=== PATIENT | male | born 1965 ===

== ENCOUNTER 2025-07-13 16:15 | Inpatient (IN) | payer OTHER ==
[~2025-07-13] VITALS: Ht 162.6 cm; Wt 71.0 kg
[2025-07-13 21:50] LABS: PLATELET COUNT (AUTO) 223 K/uL (150-450); RED BLOOD CELL COUNT(AUTO) 4.58 MIL/uL (4.50-5.90); RED CELL DISTRIBUTION WIDTH 14.4 % (11.5-14.5); WHITE BLOOD COUNT (AUTO) 11.2 K/uL (4.5-11.0)
[2025-07-13 21:52] LABS: ERYTHROCYTE SEDIMENTATION RATE 55 MM/HR (0-20)
[2025-07-13 21:59] LABS: CALCIUM, TOTAL 9.6 mg/dL (8.8-10.5); CREATININE 1.43 mg/dL (0.60-1.30); GLOMERULAR FILTR. RATE CALC 51.0 mL/min (>60); GLUCOSE,RANDOM 115.0 mg/dL (70-110); SODIUM SERUM 138.0 mmol/L (136-145); UREA NITROGEN, BLOOD 44.0 mg/dL (7-18)
[2025-07-13] MEDS: SODIUM CHLORIDE 0.9% 1,000 ML IV ONE (22:15)
[2025-07-13 22:32] LABS: LACTIC ACID 1.2 mmol/L (0.4-2.0)
[2025-07-13] MEDS: VANCOMYCIN 1GM/WATER(PEG/NADA) 200 ML IV ONE (22:53)
[2025-07-13] MEDS: LIDOCAINE 1% 10 ML VIAL SQ ONE (23:00)
[2025-07-14] MEDS ORDERED: ZOLPIDEM TARTRATE 5 MG TABLET PO PRN
[2025-07-14] MEDS ORDERED: HYDROCODONE/ACETAMINOPHEN 5-325 MG TABLET PO PRN
[2025-07-14] MEDS: HEPARIN SODIUM,PORCINE 5,000 UNITS/ML VIAL SQ SCH
[2025-07-14] MEDS ORDERED: ONDANSETRON HCL 4 MG/2 ML VIAL IVP PRN
[2025-07-14] MEDS ORDERED: BISACODYL 10 MG RECTAL RECTAL SUPPOSITORY PR PRN
[2025-07-14] MEDS ORDERED: MAGNESIUM HYDROXIDE SUSPENSION 30 ML UDCUP PO PRN
[2025-07-14 01:50] VITALS: BP 118/81; PULSE 80; RESP 18; TEMP 97.9; O2SAT 98
[2025-07-14 06:18] LABS: CALCIUM, TOTAL 8.7 mg/dL (8.8-10.5); CREATININE 1.10 mg/dL (0.60-1.30); GLOMERULAR FILTR. RATE CALC > 60 mL/min (>60); GLUCOSE,RANDOM 99 mg/dL (70-110); SODIUM SERUM 139 mmol/L (136-145); UREA NITROGEN, BLOOD 38 mg/dL (7-18)
[2025-07-14] MEDS ORDERED: VANCOMYCIN 1.25 GM/WATER(PEG) 250 ML IV SCH (08:00)
[2025-07-14] MEDS: DOCUSATE SODIUM 100 MG CAPSULE PO SCH (08:58)
[2025-07-14] MEDS: PANTOPRAZOLE SODIUM 40 MG DR TABLET PO SCH (08:58)
[2025-07-14] MEDS: VANCOMYCIN 1GM/WATER(PEG/NADA) 200 ML IV SCH (08:59)
[2025-07-14 09:00] VITALS: BP 116/78; PULSE 82; RESP 18; TEMP 98; O2SAT 98
[2025-07-14 20:15] VITALS: BP 108/71; PULSE 84; RESP 18; TEMP 99.3; O2SAT 96
[2025-07-14] MEDS: MORPHINE SULFATE 4 MG/ML VIAL IVP PRN (21:06)
[2025-07-15 04:00] VITALS: BP 114/76; PULSE 95; RESP 18; TEMP 99.1; O2SAT 98
[2025-07-15 05:55] LABS: CALCIUM, TOTAL 8.3 mg/dL (8.8-10.5); CREATININE 1.00 mg/dL (0.60-1.30); GLOMERULAR FILTR. RATE CALC > 60 mL/min (>60); GLUCOSE,RANDOM 116 mg/dL (70-110); SODIUM SERUM 135 mmol/L (136-145); UREA NITROGEN, BLOOD 27 mg/dL (7-18)
[2025-07-15 06:05] LABS: CHOL/HDL RATIO 3.8 (4.2-7.3); LDL CHOL (CALC.) 79.0 mg/dL (0-130)
[2025-07-15 08:46] VITALS: BP 113/73; PULSE 91; RESP 18; TEMP 99; O2SAT 96
[2025-07-15] MEDS: RINGERS SOLUTION,LACTATED 1,000 ML IV ONE (17:40)
[2025-07-15 20:00] VITALS: BP 127/75; PULSE 90; RESP 18; TEMP 100.2; O2SAT 99
[2025-07-15] MEDS: ACETAMINOPHEN 325 MG TABLET PO PRN (20:08)
[2025-07-15] MEDS ORDERED: SODIUM CHLORIDE 0.9% 250 ML IV ONE (20:14)
[2025-07-15] MEDS ORDERED: POTASSIUM CHL 10 MEQ/WATER 50 ML IV PRN (20:15)
[2025-07-15] MEDS: IBUPROFEN 600 MG TABLET PO SCH (21:23)
[2025-07-15] MEDS: POTASSIUM CHLORIDE 20 MEQ ER TABLET PO PRN (21:23)
[2025-07-15 21:30] VITALS: TEMP 99.3
[2025-07-16 00:53] VITALS: TEMP 98.4
[2025-07-16 04:21] VITALS: BP 101/65; PULSE 71; RESP 18; TEMP 98.1; O2SAT 96
[2025-07-16 06:48] LABS: CALCIUM, TOTAL 8.5 mg/dL (8.8-10.5); CREATININE 0.98 mg/dL (0.60-1.30); GLOMERULAR FILTR. RATE CALC > 60 mL/min (>60); GLUCOSE,RANDOM 105 mg/dL (70-110); SODIUM SERUM 134 mmol/L (136-145); UREA NITROGEN, BLOOD 21 mg/dL (7-18)
[2025-07-16 07:16] LABS: PLATELET COUNT (AUTO) 226 K/uL (150-450); RED BLOOD CELL COUNT(AUTO) 4.20 MIL/uL (4.50-5.90); RED CELL DISTRIBUTION WIDTH 13.8 % (11.5-14.5); WHITE BLOOD COUNT (AUTO) 7.5 K/uL (4.5-11.0)
[2025-07-16] MEDS ORDERED: SODIUM CHLORIDE 0.9% 500 ML IV ONE (08:03)
[2025-07-16 08:21] VITALS: BP 101/68; PULSE 80; RESP 20; TEMP 98.2; O2SAT 98
[2025-07-16 17:26] LABS: SPECIMENTYPE,BODY FLUID ASPV
[2025-07-16 18:07] LABS: APPEARANCE,UNSPUN,BODY FLUID CLOUDY (CLEAR); COLOR,BODY FLUID YELLOW (LT YELLOW)
[2025-07-16 18:16] LABS: BASOPHILS,BODY FLUID 0 %; BODY FLUID RBC 132.0 /cu. mm.; EOSINOPHILS,BF (ANAL) 0 %; LYMPHOCYTES,BODY FLUID 3 %; MONOCYTES,BODY FLUID 5 %; NEUTROPHILS,BODY FLUID 92 %; TOTAL VOLUME,BODY FLUID 10 mL; WBC, BODY FLUID 7275 /cu. mm.
[2025-07-16 18:24] LABS: APPEARANCE,SPUN,BODY FLUID HAZY (CLEAR)
[2025-07-16 20:03] VITALS: BP 102/63; PULSE 84; RESP 18; TEMP 98.6; O2SAT 98
[2025-07-17] MEDS: COLCHICINE 0.6 MG TABLET PO SCH (00:17)
[2025-07-17 04:36] VITALS: BP 103/62; PULSE 73; RESP 18; TEMP 98.4; O2SAT 98
[2025-07-17 06:41] LABS: CALCIUM, TOTAL 8.6 mg/dL (8.8-10.5); CREATININE 0.99 mg/dL (0.60-1.30); GLOMERULAR FILTR. RATE CALC > 60 mL/min (>60); GLUCOSE,RANDOM 101 mg/dL (70-110); SODIUM SERUM 134 mmol/L (136-145); UREA NITROGEN, BLOOD 23 mg/dL (7-18)
[2025-07-17 08:18] VITALS: BP 104/67; PULSE 71; RESP 18; TEMP 97.7; O2SAT 98
[2025-07-17] MEDS ORDERED: COLC-3 PO (14:47)
[2025-07-17] MEDS ORDERED: IBUP-1492 PO (14:48)
[2025-07-17] MEDS ORDERED: PANT-31 PO (14:49)
[2025-07-17] MEDS ORDERED: LIDO-57 TP (14:59)
[2025-07-17 20:02] VITALS: BP 123/81; PULSE 91; RESP 18; TEMP 98.1; O2SAT 95
== END 2025-07-17 20:33 | DRG 554 ==
LOC: EMS 16:15 → EDH 07-14 00:02 → 6S 07-14 01:50
PROVIDERS: ADMIT Internal Medicine; ATTEND Internal Medicine
PROC: 0S9C3ZZ Drainage of Right Knee Joint, Percutaneous Approach (ICD-10-PCS; principal; 2025-07-16)
DX: M10.9 Gout, unspecified (principal); N17.9 Acute kidney failure, unspecified; E11.22 Type 2 diabetes mellitus with diabetic chronic kidney disease; E78.5 Hyperlipidemia, unspecified; I12.9 Hypertensive chronic kidney disease with stage 1 through stage 4 chronic kidney disease, or unspecified chronic kidney disease; N18.9 Chronic kidney disease, unspecified; M25.461 Effusion, right knee
CPT/HCPCS: 73700; 80048; 80061; 80202; 83036; 83605; 83735; 84132; 84550; 85025; 85651; 87015; 87040; 87075; 87101; 87205; 87206; 89051; 89060; 97116; 97163; 99285; J1644; J2270; J3490; J7030; J7040; J7050; J7120; 36415-L1; 36415-TC; 87070